=== PATIENT | male | born 1950 | race Caucasian/White ===

== ENCOUNTER 2018-07-06 09:38 | Emergency (ER) | payer MEDICARE, OTHER ==
[2018-07-06 09:46] VITALS: BP 136/84
--- NOTE | 2018-07-06 10:20 | EDM.PDOC ---
ED HPI GENERAL MEDICAL PROBLEM - General Chief Complaint: Chest Pain Stated Complaint: CHEST DISCOMFORT Time Seen by Provider: 07/06/18 09:51 Source of Information: Reports: Patient, Family (), RN Notes Reviewed History Limitations: Reports: No Limitations - History of Present Illness INITIAL COMMENTS - FREE TEXT/NARRATIVE: The patient states that he developed left sided chest discomfort - he placed his hand over his left pectoralis muscle - since around 15:00, after shoveling snow. He describes the sensation as a pressure. It is a discomfort, not a pain, only 1 to 2 of 10 when present. When present, it persists for about 1-2 hours, then will resolve for another 1-2 hours before recurring. The patient has not identified any modifiers. He has no associated dyspnea, nausea, or diaphoresis. He denies having a sense of impending doom, but states that he is not feeling normal. The patient states that he took a single nitroglycerin tablet last night, then another this morning, although is not certain if the nitroglycerin did anything other than give him a headache. The patient has a history of CAD, with a MO in 2008. At that time, he was shoveling snow and developed a burning sensation in his throat. He did not experience any chest discomfort, dyspnea, nausea, diaphoresis, or sense of impending doom. The patient states that he has had the same left-chest discomfort in the past, in November 2017, as well as 2 to 3 weeks ago. He returned to the [facility] this past November, where he received a 4th coronary stent, although the patient cannot say why he was taken to the [facility] - whether he had an elevated troponin, an abnormal ECG, or a failed stress test. The episode 2 to 3 weeks ago also occurred after shoveling snow. It lasted overnight. He took a nitroglycerin and it resolved. The patient states that he has not experienced any burning sensation in his throat with either of his more recent episodes, 2 to 3 weeks ago or yesterday. The patient believes his last cardiac stress test was around 2015. Here in the ED, the patient is found to be hemodynamically stable. He is not currently experiencing chest discomfort. The patient's PCP is Dr. Kendrick Sosa. The patient sees Myrna Mcfarlane PA-C, for Dr. Butler, [employer]. Left Chest Pain Score (Numeric/FACES): 1 - Related Data Allergies Allergy/AdvReac Type Severity Reaction Status Date / Time cat dander Allergy Cannot Verified 07/06/18 09:46 Remember mold Allergy Cannot Verified 07/06/18 09:46 Remember Home Meds: Home Meds Clopidogrel Bisulfate [Plavix] 75 mg PO DAILY 05/24/16 [History] Metoprolol Succinate [Toprol XL] 12.5 mg PO DAILY 05/24/16 [History] Rosuvastatin Calcium [Crestor] 40 mg PO DAILY 05/24/16 [History] Aspirin [Ecotrin] 325 mg PO DAILY 07/06/18 [History] Past Medical History HEENT History: Reports: Impaired Vision (Retinitis pigmentosa, legally blind) Cardiovascular History: Reports: CAD, High Cholesterol, MO (2008) Gastrointestinal History: Reports: Diverticulosis (diverticulitis) Genitourinary History: Reports: Renal Calculus Musculoskeletal History: Reports: Arthritis - Past Surgical History HEENT Surgical History: Reports: Adenoidectomy, Cataract Surgery, Naso-Sinus Surgery, Oral Surgery (wisdom teeth extraction), Tonsillectomy Cardiovascular Surgical History: Reports: Coronary Artery Stent (4 total over 3 procedures) Social & Family History - Tobacco Use Smoking Status *Q: Never Smoker Second Hand Smoke Exposure: No - Caffeine Use Caffeine Use: Reports: Coffee Other Caffeine Use: cup of coffee thsi am - Alcohol Use Alcohol Use History: Yes Alcohol Use Frequency: Rarely - Recreational Drug Use Recreational Drug Use: No - Living Situation & Occupation Living situation: Reports: , with Spouse Occupation: Retired ED ROS GENERAL - Review of Systems Review Of Systems: ROS reveals no pertinent complaints other than HPI. ED EXAM, GENERAL - Physical Exam Exam: See Below Exam Limited By: No Limitations General Appearance: Alert, WD/WN, No Apparent Distress Eye Exam: Bilateral Eye: EOMI Ears: Normal External Exam, Hearing Grossly Normal Nose: Normal Inspection Throat/Mouth: Normal Inspection, Normal Lips, Normal Voice, No Airway Compromise Head: Atraumatic, Normocephalic Neck: Normal Inspection, Full Range of Motion Respiratory/Chest: No Respiratory Distress, Lungs Clear, Normal Breath Sounds, No Accessory Muscle Use, Chest Non-Tender (including the left chest), Other ( Left chest pain not induced with the pectoralis muscle flexion or crossing left arm across the chest.) Cardiovascular: Normal Peripheral Pulses, Regular Rate, Rhythm, No Edema, No Gallop, No JVD, No Murmur, No Rub Peripheral Pulses: 4+: Radial (L), Radial (R) GI/Abdominal: Normal Bowel Sounds, Soft, Non-Tender, No Organomegaly, No Distention, No Abnormal Bruit, No Mass (Male) Exam: Deferred Rectal (Males) Exam: Deferred Back Exam: Normal Inspection, Full Range of Motion, NT Extremities: Normal Inspection, Normal Range of Motion, No Pedal Edema, Normal Capillary Refill Neurological: Alert, Oriented, Normal Cognition, No Motor/Sensory Deficits Psychiatric: Normal Affect Skin Exam: Warm, Dry, Intact, Normal Color, No Rash EKG INTERPRETATION EKG Date: 07/06/18 Time: 09:48 Rhythm: Other (Sinus bradycardia) Rate (Beats/Min): 59 [place]: LAD-Left [place] Deviation P-Wave: Present QRS: Normal ST-T: Normal QT: Normal Comparison: No Change (05/24/2016) Course - Vital Signs Last Recorded V/S: Last Vital Signs Temp 36.4 C 07/06/18 09:43 Pulse 68 07/06/18 09:43 Resp 16 07/06/18 09:43 BP 136/84 07/06/18 09:43 Pulse Ox 98 07/06/18 09:43 - Orders/Labs/Meds Labs: Laboratory Tests 07/06/18 07/06/18 Range/Units 09:45 09:45 WBC 7.16 (4.23-9.07) K/mm3 RBC 5.55 (4.63-6.08) M/mm3 Hgb 15.4 (13.7-17.5) gm/L Hct 45.8 (40.1-51.0) % MCV 82.5 (79.0-92.2) fl MCH 27.7 (25.7-32.2) pg MCHC 33.6 (32.2-35.5) g/dl RDW Std Deviation 41.9 (35.1-43.9) fL Plt Count 198 (163-337) K/mm3 MPV 9.6 (9.4-12.3) fl Neutrophils % (Manual) 60 (40-60) % Band Neutrophils % 0 (0-10) % Lymphocytes % (Manual) 31 (20-40) % Atypical Lymphs % 0 % Monocytes % (Manual) 3 (2-10) % Eosinophils % (Manual) 6 (0.8-7.0) % Basophils % (Manual) 0 L (0.2-1.2) Platelet Estimate Adequate Plt Morphology Comment Normal RBC Morph Comment Normal Sodium 142 (136-145) mEq/L Potassium 4.1 (3.5-5.1) mEq/L Chloride 105 (98-107) mEq/L Carbon Dioxide 26 (21-32) mEq/L Anion Gap 15.1 H (5-15) BUN 19 H (7-18) mg/dL Creatinine 1.3 (0.7-1.3) mg/dL Est Cr Clr Drug Dosing 54.81 mL/min Estimated GFR (MDRD) 55 (>60) mL/min BUN/Creatinine Ratio 14.6 (14-18) Glucose 107 (80-115) mg/dL Calcium 9.0 (8.5-10.1) mg/dL Total Bilirubin 1.2 H (0.2-1.0) mg/dL AST 30 (15-37) U/L ALT 34 (16-63) U/L Alkaline Phosphatase 98 (46-116) U/L Troponin I < 0.017 (0.00-0.056) ng/mL Total Protein 7.7 (6.4-8.2) g/dl Albumin 4.2 (3.4-5.0) g/dl Globulin 3.5 gm/dL Albumin/Globulin Ratio 1.2 (1-2) - Re-Assessments/Exams Free Text/Narrative Re-Assessment/Exam: 07/06/18 10:16 When the patient presented with a MO in 2008, his presentation was of a throat burning sensation, only. He did not have any chest discomfort, nor any associated symptoms. 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 The onset of the patient's symptoms following significant exertion , as well as possible relief with nitroglycerin, are concerning for a cardiac etiology, however, the come-and-go nature of his symptoms, particularly since they are unrelated to exertion, along with the left-chest location, speak against this being angina. For today's purposes, I have ordered an ECG, a chest x-ray, and some blood work that includes a troponin. If all are negative, the patient may safely be discharged home, to follow-up with his [facility]. 07/06/18 10:47 Two-view chest radiograph is read by Dr. Thomas as: 1. Stable findings as noted above. Nothing acute is seen. 07/06/18 11:43 Test results discussed with the patient, his , and their friend. Today's workup is entirely unremarkable. The patient has not suffered a MO, although that does not mean that his chest pain is not cardiac in etiology. I believe the patient may safely be discharged home, however, I am recommending that he take it easy over the next week, then follow-up with his [facility] on Friday , 07/13/2018, as previously scheduled. I am recommending that he undergo a cardiac stress test. In the meantime, if the patient's chest pain worsens, or if he develops other symptoms, such as dyspnea or diaphoresis, or, more specifically, a burning sensation in his throat, that he return to the ED for reevaluation. Departure - Departure Time of Disposition: 11:46 Disposition: Home, Self-Care 01 Condition: Good Clinical Impression: Chest pain of uncertain etiology - Discharge Information *PRESCRIPTION DRUG MONITORING PROGRAM REVIEWED*: Not Applicable *COPY OF PRESCRIPTION DRUG MONITORING REPORT IN PATIENT [place]: Not Applicable Instructions: Nonspecific Chest Pain, [id number] Referrals: Kendrick Sosa MD [Primary Care Provider] - Myrna Mcfarlane PA-C [Ordering Only Provider] - Luis Armando Butler MD [Ordering Only Provider] - Forms: ED Department Discharge Additional Instructions: You were seen in the emergency room for left-sided chest pain this been coming and going ever since he was shoveling snow on 07/05/2018. Workup in the ER included blood work, a chest x-ray, and an ECG. Your entire workup was unremarkable, and does not explain the cause of your symptoms. You have not suffered a heart attack. You do not have pneumonia or a collapsed lung. The cause of your symptoms is unclear. Even though your workup today was unremarkable, it is possible that your pain was coming from your heart. Follow-up with Myrna Mcfarlane, your cardiology PA, at your previously scheduled appointment this coming 07/13/2018. At that time, we recommend that you be scheduled for an outpatient cardiac stress test. If your left chest discomfort worsens, or you develop new symptoms, such as a burning sensation in your throat, shortness of breath, sweatiness, or nausea, please return to the ER for reevaluation.
--- NOTE | 2018-07-06 10:37 | CR ---
Chest: Two views of the chest were obtained. Comparison: Prior chest x-ray of 05/24/16. Heart size is slightly prominent. Mediastinum is within normal limits. Lungs are clear. Scoliosis and degenerative change are seen within the spine. Impression: 1. Stable findings as noted above. Nothing acute is seen. Diagnostic code #2
== END 2018-07-06 12:10 | disposition home or self-care (01) ==
LOC: JD.ED 09:38
DX: R07.89 Other chest pain (principal); E78.00 Pure hypercholesterolemia, unspecified; Z79.899 Other long term (current) drug therapy; Z79.01 Long term (current) use of anticoagulants
CPT/HCPCS: 36415; 71046; 71046-26; 80053; 84484; 85007; 85027; 93005; 93010; 99284; 99285-25

== ENCOUNTER 2021-07-03 21:54 | Emergency (ER) | payer MEDICARE, OTHER ==
[2021-07-03 22:14] VITALS: BP 148/100; PULSE 65
[2021-07-03] MEDS ORDERED: Ondansetron 4 MG/2 ML SDV IVPUSH ONE (22:18)
[2021-07-03] MEDS ORDERED: HYDROmorphone 1 MG/ML Syringe IVPUSH STA (22:18)
[2021-07-03] MEDS ORDERED: Sodium Chloride 0.9% 1,000 ML IV SCH (22:30)
[2021-07-04] MEDS ORDERED: Tamsulosin 0.4 MG Cap.ER PO ONE (00:15)
[2021-07-04] MEDS ORDERED: HYDROmorphone 1 MG/ML Syringe IVPUSH ONE (00:33)
== END 2021-07-04 00:50 | disposition home or self-care (01) ==
LOC: JD.ED 21:54
DX: N13.2 Hydronephrosis with renal and ureteral calculous obstruction (principal); I25.10 Atherosclerotic heart disease of native coronary artery without angina pectoris; E78.00 Pure hypercholesterolemia, unspecified; I25.2 Old myocardial infarction; Z91.09 Other allergy status, other than to drugs and biological substances; Z91.048 Other nonmedicinal substance allergy status; Z79.02 Long term (current) use of antithrombotics/antiplatelets; Z79.899 Other long term (current) drug therapy; Z79.82 Long term (current) use of aspirin
CPT/HCPCS: 36415; 74176; 80053; 81001; 85025; 96374; 96375; 96376; 99284; A9270; J1170; J2405; J7030

== ENCOUNTER 2021-08-16 08:34 | Emergency (ER) | payer MEDICARE, OTHER ==
[2021-08-16 08:48] VITALS: BP 141/89; PULSE 72
[2021-08-16] MEDS ORDERED: Ondansetron 4 MG/2 ML SDV IVPUSH ONE (09:06)
[2021-08-16] MEDS ORDERED: Sodium Chloride 0.9% 10 ML Syringe FLUSH PRN (09:06)
[2021-08-16] MEDS ORDERED: Ketorolac 30 MG/ML SDV IVPUSH ONE (09:07)
[2021-08-16] MEDS ORDERED: HYDROmorphone 0.5 MG/0.5 ML Syringe IVPUSH ONE ×2 (09:08→11:42)
[2021-08-16] MEDS ORDERED: Sodium Chloride 0.9% 1,000 ML IV SCH (09:15)
== END 2021-08-16 12:35 | disposition home or self-care (01) ==
LOC: JD.ED 08:34
DX: N20.2 Calculus of kidney with calculus of ureter (principal); I25.10 Atherosclerotic heart disease of native coronary artery without angina pectoris; E78.00 Pure hypercholesterolemia, unspecified; I25.2 Old myocardial infarction; Z79.02 Long term (current) use of antithrombotics/antiplatelets; Z79.82 Long term (current) use of aspirin; Z79.899 Other long term (current) drug therapy; Z91.048 Other nonmedicinal substance allergy status; Z86.16 Personal history of COVID-19
CPT/HCPCS: 36415; 74176; 80053; 81001; 83690; 85025; 96374; 96375; 96376; 99284; J1170; J1885; J2405; J7030; 99285

== ENCOUNTER 2022-01-01 23:18 | Emergency (ER) | payer MEDICARE, OTHER ==
[2022-01-01 23:59] VITALS: BP 126/82; PULSE 65
== END 2022-01-02 01:50 | disposition home or self-care (01) ==
LOC: JD.ED 23:18
DX: R00.2 Palpitations (principal); I25.10 Atherosclerotic heart disease of native coronary artery without angina pectoris; R73.9 Hyperglycemia, unspecified; I25.2 Old myocardial infarction; Z91.048 Other nonmedicinal substance allergy status; Z79.899 Other long term (current) drug therapy; Z79.82 Long term (current) use of aspirin; Z86.16 Personal history of COVID-19
CPT/HCPCS: 36415; 80053; 83735; 84484; 85025; 85379; 93005; 93010; 93225; 93226; 99283; 99285